=== PATIENT | male | born 1980 | race Caucasian/White ===

== ENCOUNTER 2019-08-07 12:39 | Outpatient (CLI) | payer BC, SELFPAY ==
--- NOTE | 2019-08-07 12:44 | CT_ITS ---
WS: [id number] CT NECK TECHNIQUE: Noncontrast CT of the neck with coronal and sagittal reformatted images. CLINICAL INFORMATION: KNOT IN THROAT, HOARSENESS COMPARISON: None. DLP: [id number] scans at [facility] use at least one of these dose optimization techniques: automat ed exposure control; mA and/or kV adjustment per patient size (includes targeted exams where dose is matched to clinical indication); or iterative reconstruction. FINDINGS: Parotid glands are normal. Normal submandibular glands. Normal posterior nasopharynx. Normal paraphar yngeal fat. No evidence of supraglottic or glottic mass. Normal vallecula and piriform sinuses. Subgl ottic larynx is normal. No cervical lymphadenopathy. Normal thyroid gland. Lung apices are well aerated. Normal glottis and vocal cords. Right maxillary sinusitis CT/CT neck wo con [id number] IMPRESSION: 1. Normal salivary glands. 2. No cervical lymphadenopathy. 3. No evidence of supraglottic or glottic mass. Normal vocal cords. 4. Right maxillary sinusitis. 5. Mastoid air cells are well aerated.
--- NOTE | 2019-08-07 12:44 | CT_ITS ---
WS: [id number] CT ABDOMEN TECHNIQUE: Noncontrast CT of the abdomen with coronal and sagittal reformatted images. CLINICAL INFORMATION: RUQ PAIN, FATTY LIVER DISEASE COMPARISON: None. DLP: [id number] scans at [facility] use at least one of these dose optimization techniques: automat ed exposure control; mA and/or kV adjustment per patient size (includes targeted exams where dose is matched to clinical indication); or iterative reconstruction. FINDINGS: Noncontrast liver is normal. Cholecystectomy clips. Normal spleen. Normal gastroesophageal junction. Lung bases are well aerated. Adrenal glands are normal. No hydronephrosis. Visualized ureters are dec ompressed. Normal noncontrast pancreas. Normal caliber abdominal aorta. No abdominal lymphadenopathy. CT/CT abdomen wo con [id number] IMPRESSION: 1. Prior cholecystectomy. 2. Noncontrast liver and spleen are unremarkable. 3. No hydronephrosis in either kidney. 4. Normal caliber abdominal aorta. 5. No abdominal lymphadenopathy. 6. No acute abdominal findings.
[2019-08-07] MEDS: iohexol 300 mg/mL 50 mL Btl PO (12:53)
== END 2019-08-07 12:40 | disposition home or self-care (01) ==
LOC: RADWPI 12:41
PROVIDERS: Family Provider Nurse Practitioner Family; PCP Nurse Practitioner Family; Visit Provider Nurse Practitioner Family
DX: K76.0 Fatty (change of) liver, not elsewhere classified (principal); R10.11 Right upper quadrant pain; R22.1 Localized swelling, mass and lump, neck; R49.0 Dysphonia; J32.0 Chronic maxillary sinusitis; Z90.49 Acquired absence of other specified parts of digestive tract
CPT/HCPCS: 70490; 74150

== ENCOUNTER 2020-02-05 14:58 | Outpatient (CLI) | payer BC, SELFPAY ==
--- NOTE | 2020-02-05 15:15 | XRR_ITS ---
PROCEDURE INFORMATION: Exam: XR Chest, 1 View Exam date and time: 02/05/2020 3:30 PM Age: 39 years old Clinical indication: Cough; Additional info: Covid positive. Exposure to covid TECHNIQUE: Imaging protocol: XR of the chest Views: 1 view. COMPARISON: CR Chest 2 views* [id number] 04/02/2019 3:23 PM FINDINGS: Lungs: Somewhat reduced lung volumes with bibasilar bronchovascular crowding. No acute infiltrate evident. Pleural space: Unremarkable. No pleural effusion. No pneumothorax. Heart/Mediastinum: Unremarkable. No cardiomegaly. Bones/joints: Unremarkable. XR/XR chest 1V [id number] IMPRESSION: Somewhat reduced lung volumes with bibasilar bronchovascular crowding. No acute infiltrate evident.
== END 2020-02-05 14:59 | disposition home or self-care (01) ==
PROVIDERS: PCP Nurse Practitioner Family; Visit Provider Nurse Practitioner Family
DX: R06.02 Shortness of breath (principal)
CPT/HCPCS: 71045

== ENCOUNTER 2020-05-21 07:06 | Outpatient (CLI) | payer BC, SELFPAY ==
--- NOTE | 2020-05-21 07:10 | US_ITS ---
WS: [id number] RIGHT UPPER QUADRANT ULTRASOUND HISTORY: RUQ ABD PAIN COMPARISON: None available. Liver: 19.7 cm in length. Marked enlargement of the liver with severe hepatic steatosis. This extreme ly limited visualization of the liver. Cannot exclude mass or bile duct dilatation. Gallbladder: Prior cholecystectomy. CBD: 0.9 cm Pancreas: Not visualized. Right kidney: 13.3 cm in length. Normal size and echogenicity. No hydronephrosis or mass. Aorta and IVC: Unremarkable abdominal aorta and IVC. No ascites. US/US abdomen limited [id number] IMPRESSION: 1. Technically very limited evaluation of the RIGHT upper quadrant body habitu s. 2. Hepatomegaly and hepatic steatosis. 3. Prior cholecystectomy.
== END 2020-05-21 07:07 | disposition home or self-care (01) ==
LOC: US 07:08
PROVIDERS: PCP Nurse Practitioner Family; Visit Provider Nurse Practitioner Family
DX: E66.01 Morbid (severe) obesity due to excess calories (principal); Z68.41 Body mass index [BMI] 40.0-44.9, adult; G47.33 Obstructive sleep apnea (adult) (pediatric); R63.5 Abnormal weight gain; R79.89 Other specified abnormal findings of blood chemistry
CPT/HCPCS: 76705; 99204

== ENCOUNTER 2020-05-26 07:15 | Outpatient (CLI) | payer BC, SELFPAY ==
[2020-05-26 08:22] LABS: Free T4 Free Thyroxine 1.24 ng/dL (0.82-1.77); Testosterone Total 419.5 ng/dL (249-836); Thyroid Stimulating Hormone 1.04 uIU/mL (0.27-4.20)
[2020-05-26 09:03] LABS: Follicle Stimulating Hormone 2.8 mIU/mL (1.5-12.4); Luteinizing Hormone 5.2 mIU/mL (1.7-8.6)
[2020-05-29 12:57] LABS: Testosterone, Free 75.3 pg/mL (46.0-224.0)
== END 2020-05-26 07:16 | disposition home or self-care (01) ==
LOC: LAB 07:18
PROVIDERS: PCP Nurse Practitioner Family; Visit Provider Internal Medicine
DX: E66.01 Morbid (severe) obesity due to excess calories (principal); R79.89 Other specified abnormal findings of blood chemistry; Z68.41 Body mass index [BMI] 40.0-44.9, adult
CPT/HCPCS: 36415; 83001; 83002; 84402; 84403; 84439; 84443

== ENCOUNTER 2020-05-27 11:17 | Outpatient (CLI) | payer BC, SELFPAY ==
[2020-05-27 13:14] LABS: Urine Creatinine 215 mg/dL (39-259)
[2020-05-28 09:19] LABS: Total Volume Urine 1500 ml
[2020-06-02 17:24] LABS: Free Cortisol Urine 29.5 mcg/24 h (4.0-50.0); Total Urine 1500 mL; Urine Creatinine 2.94 g/24 h (0.50-2.15)
== END 2020-05-27 11:18 | disposition home or self-care (01) ==
LOC: LAB 11:18
PROVIDERS: PCP Nurse Practitioner Family; Visit Provider Internal Medicine
DX: E66.01 Morbid (severe) obesity due to excess calories (principal); R79.89 Other specified abnormal findings of blood chemistry; Z68.41 Body mass index [BMI] 40.0-44.9, adult
CPT/HCPCS: 82530; 82570